=== PATIENT | male | born 1965 | race Caucasian/White ===

== ENCOUNTER 2024-08-10 03:53 | Emergency (ER) | payer OTHER, SELFPAY ==
[2024-08-10 03:55] VITALS: BP 175/92; PULSE 89; RESP 18; TEMP 36.8; O2SAT 98; BMI 25.1
[2024-08-10 04:08] LABS: Basophils % 0.3 %; Eosinophils # 0.2 10^3/uL (0.0-0.8); Eosinophils % 1.5 %; Hematocrit 41.5 % (37-53); Lymphocytes # 1.3 10^3/uL (0.8-4.8); Mean Corpuscular HGB Conc 33.5 g/dL (30-55); Mean Corpuscular Hemoglobin 30.9 pg (27-33); Mean Corpuscular Volume 92.2 fl (82-101); Mean Platelet Volume 11.8 fL (7.4-10.4); Monocytes # 0.6 10^3/uL (0.2-0.9); Monocytes % 5.2 %; Neutrophils # 8.82 10^3/uL (1.8-7.7); Neutrophils % 80.5 %; Nucleated Red Blood Cells % 0 %; Platelet Count 158 10^3/cmm (157-399); Red Cell Distribution Width 13.2 % (12.1-15.1); White Blood Count 10.95 10^3/uL (3.29-11.43)
[2024-08-10] MEDS: sodium chloride 0.9% 1,000 ML 999 ML IV (04:22)
[2024-08-10] MEDS: ondansetron 2 mg/ML SDV 2 mL 4 MG IVP ×2 (04:22→07:15)
[2024-08-10 04:26] LABS: Alanine Aminotransferase 34 U/L (0-41); Albumin Level 4.4 g/dL (3.5-5.2); Alkaline Phosphatase 81 U/L (40-130); Anion Gap 14.3 (5-19); Aspartate Amino Transferase 21 U/L (0-40); Blood Urea Nitrogen 24 mg/dL (8-23); CRP High Sensitivity Cardiac < 0.150 mg/dL (0.0-0.3); Calcium 9.3 mg/dL (8.5-10.5); Carbon Dioxide 25 mmol/L (22-29); Chloride 105 mmol/L (98-107); Creatinine Clr Calc Pharmacy 139.9104; Globulin 3.3 g/dL (1.3-4.6); Glomerular Filtration Rate 137.4 mL/min (90-130); Glucose 193 mg/dL (65-115); Lipase 49 U/L (13-60); Magnesium 1.8 mg/dL (1.7-2.3); Osmolality Calculated 299 mOsm/kg (285-295); Potassium 4.3 mmol/L (3.5-5.1); Sodium 140 mmol/L (136-145); Total Bilirubin 0.3 mg/dL (0.15-1.2); Total Protein 7.7 g/dL (6.6-8.7)
--- NOTE | 2024-08-10 04:31 | W.ED.NAVMDI ---
HPI - Nausea/Vomiting/Diarrhea General: Chief complaint: Nausea/Vomiting/Diarrhea Stated complaint: n/v, possible food poison Time Seen by Provider: 08/10/24 03:58 History of Present Illness: Patient presents to the ER with complaints of sudden onset dizziness and vomiting came on suddenly last night. Patient feels that this is symptoms of food poisoning that likely due to the mushrooms that he ate at dinner. He ate everything else before besides the mushrooms and this is the first time he ate them. He ate alone. No one else is having symptoms. Patient has had at least 4 episodes of emesis and 2 loose stools since then. Patient does have vertigo that is worse when he is on his right lateral recumbent. It is significantly better if he sits up and look straight forward. Related Data Previous Rx's Medication Instructions Recorded diazepam 2 mg tablet (Valium) 2 mg PO DAILY dizziness or vertigo 08/10/24 #14 tabs Allergies Allergy/AdvReac Type Severity Reaction Status Date / Time Influenza Virus Vaccines Allergy ALGY-Rash Verified 08/10/24 03:58 Sulfa (Sulfonamide Allergy ALGY-Anaphy Verified 08/10/24 03:58 Antibiotics) laxis Review of Systems General: Reports: 10 or more systems reviewed and unremarkable except in HPI and below Physical Exam Const: COMMON NORMALS: no acute distress, average body habitus, patient oriented x3, no limitations, healthy appearing, alert and well nourished HENMT: COMMON NORMALS: normocephalic, atraumatic, hearing grossly normal bilaterally, external ears normal, Normal external nose present and moist oral mucous membranes HEAD & SCALP: normocephalic and atraumatic NOSE: Normal external nose present EXTERNAL EAR: Yes external ears normal Neck/C-Spine: COMMON NORMALS: no JVD Chest: COMMONS NORMALS: normal inspection of the chest and normal palpation of entire chest wall Resp: COMMON NORMALS: normal respiratory effort, No retractions, No use of accessory muscles and clear to auscultation bilaterally AUSCULTATION: clear to auscultation bilaterally Cardio: COMMON NORMALS: no JVD, regular rate, regular rhythm, S1 normal heart sound present, S2 normal heart sound present, No gallops present (Cardio), No clicks present (Cardio), No murmurs present (Cardio) and No rub (Cardio) RATE: regular rate RHYTHM: regular rhythm HEART SOUNDS: S1 normal heart sound present and S2 normal heart sound present GI: COMMON NORMALS: Normal to inspection, nondistended, normoactive bowel sounds present, Soft to palpation, non-tender, No hepatosplenomegaly present and no masses PALPATION: Yes Soft to palpation and Yes No hepatosplenomegaly present Neuro: COMMON NORMALS: patient oriented x3 SENSORIUM/ORIENTATION: Yes alert Course Vital Signs: Vital signs: Vital Signs Temperature 98.3 F 08/10/24 03:55 Pulse Rate 80 08/10/24 09:06 Respiratory Rate 18 08/10/24 03:55 Blood Pressure 146/70 08/10/24 09:06 Pulse Oximetry 99 08/10/24 09:06 Oxygen Delivery Me thod Room Air 08/10/24 07:07 MDM - Nausea/Vomiting/Diarrhea Medical Decision Making Care transferred over shift change Medical Records I reviewed the patient's medical records. Lab Data I reviewed the patient's lab results. 08/10/24 04:04 08/10/24 04:04 Radiology Impressions Head MRI 08/10/24 06:59 IMPRESSION: 1. Normal diffusion imaging. No acute infarct. 2. No prior infarct and mild volume loss. 3. RIGHT maxillary sinusitis. Laboratory Results WBC 10.95 10^3/uL (3.29-11.43) 08/10/24 04:04 RBC 4.50 10^6/uL (3.85-5.65) 08/10/24 04:04 Hgb 13.90 g/dL (11.27-16.99) 08/10/24 04:04 Hct 41.5 % (37-53) 08/10/24 04:04 MCV 92.2 fl (82-101) 08/10/24 04:04 MCH 30.9 pg (27-33) 08/10/24 04:04 MCHC 33.5 g/dL (30-55) 08/10/24 04:04 RDW 13.2 % (12.1-15.1) 08/10/24 04:04 Plt Count 158 10^3/cmm (157-399) 08/10/24 04:04 MPV 11.8 fL (7.4-10.4) H 08/10/24 04:04 Neut % (Auto) 80.5 % 08/10/24 04:04 Lymph % (Auto) 12.0 % 08/10/24 04:04 [place] % (Auto) 5.2 % 08/10/24 04:04 Eos % (Auto) 1.5 % 08/10/24 04:04 Baso % (Auto) 0.3 % 08/10/24 04:04 Neut # (Auto) 8.82 10^3/uL (1.8-7.7) H 08/10/24 04:04 Lymph # (Auto) 1.3 10^3/uL (0.8-4.8) 08/10/24 04:04 [place] # (Auto) 0.6 10^3/uL (0.2-0.9) 08/10/24 04:04 Eos # (Auto) 0.2 10^3/uL (0.0-0.8) 08/10/24 04:04 Baso # (Auto) 0.0 10^3/uL (0.0-0.1) 08/10/24 04:04 Nucleated RBC % (auto) 0 % 08/10/24 04:04 Nucleated RBCs # 0.0 /100WBC 08/10/24 04:04 Sodium 140 mmol/L (136-145) 08/10/24 04:04 Potassium 4.3 mmol/L (3.5-5.1) 08/10/24 04:04 Chloride 105 mmol/L (98-107) 08/10/24 04:04 Carbon Dioxide 25 mmol/L (22-29) 08/10/24 04:04 Anion Gap 14.3 (5-19) 08/10/24 04:04 BUN 24 mg/dL (8-23) H 08/10/24 04:04 Creatinine 0.6 mg/dL (0.7-1.2) L 08/10/24 04:04 GFR Calculation 137.4 mL/min (90-130) H 08/10/24 04:04 Glucose 193 mg/dL (65-115) H 08/10/24 04:04 Calculated Osmolality 299 mOsm/kg (285-295) H 08/10/24 04:04 Calcium 9.3 mg/dL (8.5-10.5) 08/10/24 04:04 Magnesium 1.8 mg/dL (1.7-2.3) 08/10/24 04:04 Total Bilirubin 0.3 mg/dL (0.15-1.2) 08/10/24 04:04 AST 21 U/L (0-40) 08/10/24 04:04 ALT 34 U/L (0-41) 08/10/24 04:04 Alkaline Phosphatase 81 U/L (40-130) 08/10/24 04:04 C-React Prot High Sens < 0.150 mg/dL (0.0-0.3) 08/10/24 04:04 Total Protein 7.7 g/dL (6.6-8.7) 08/10/24 04:04 Albumin 4.4 g/dL (3.5-5.2) 08/10/24 04:04 Globulin 3.3 g/dL (1.3-4.6) 08/10/24 04:04 Lipase 49 U/L (13-60) 08/10/24 04:04 All radiology interpretation(s) finalized by discharge Discharge Plan Discharge Patient Disposition: Home Clinical Impression: Benign paroxysmal positional vertigo, Food poisoning Condition: Stable Prescriptions: New diazepam [Valium] 2 mg tablet 2 mg PO DAILY Qty: 14 0RF Discharge Orders: Discharge ED (Routine); Ordered 08/10/24 Ordered By: Imer Evans Discharge Diet: Usual diet Discharge Activity: Increase activity as tolerated Patient Instructions: Benign Paroxysmal Positional Vertigo (ED), Opioid Safety, Pain Management Activity Restrictions/Additional Instructions: Thank you for choosing [facility] for your healthcare needs today. It is very important that you follow up as instructed or that you return to the Emergency Department should you have concerns or if your condition changes or worsens in any way. You were seen in the emergency room with symptoms of benign paroxysmal positional vertigo. Your MRI was normal. Follow-up with your neurologist as soon as you are able. You were given Valium 2 mg to take at at bedtime for 14 days. Coding Level of Care Code ED Substation Engineer for Chadwick Loja
[2024-08-10 06:13] VITALS: BP 149/91
--- NOTE | 2024-08-10 06:59 | MR_ITS ---
WS: [id number] MRI BRAIN WITHOUT CONTRAST HISTORY: VERTIGO, NAUSEA VOMITING COMPARISON: None available. TECHNIQUE: Diffusion imaging, multiplanar T1, T2 and FLAIR imaging obtained. Normal diffusion imaging. No evidence for acute infarct or hemorrhage. [place]-white matter differentiat ion is normal. Normal hippocampal formations. No remote or acute infarcts. No significant volume loss. Ventricles and extra-axial spaces are normal. No inferior displacement of cerebellar tonsils. The sella turcica and pituitary gland are unremarkabl e. Dural venous sinuses and [place] demonstrate no abnormality on this unenhanced studies. Paranasal sinuses: Mild mucoperiosteal thickening in the maxillary sinuses. Small air-fluid level RIG HT maxillary sinus. Mastoid air cells: Normal. Calvarium and scalp: Intact. MR/MR head wo con* [id number] IMPRESSION: 1. Normal diffusion imaging. No acute infarct. 2. No prior infarct and mild volume loss. 3. RIGHT maxillary sinusitis.
[2024-08-10 07:07] VITALS: BP 155/99; PULSE 79; O2SAT 100
[2024-08-10] MEDS: alum-mag-hydroxide-sime 30 mL UDC PO (08:33)
[2024-08-10 09:06] VITALS: BP 146/70; PULSE 80; O2SAT 99
== END 2024-08-10 08:45 | disposition home or self-care (01) ==
PROVIDERS: Emergency Medicine; Emergency Provider Family Medicine
DX: R42 Dizziness and giddiness (principal); A05.9 Bacterial foodborne intoxication, unspecified
CPT/HCPCS: 36415; 70551; 80053; 83690; 83735; 85025; 86141; 96361; 96374; 96376; 99284; J2405; J7030